=== PATIENT | female | born 1990 | race Caucasian/White ===

== ENCOUNTER → 2024-06-05 | Outpatient (CLI) | payer OTHER ==
[~2024-06-05] MED LIST: NITR100CA PO; SULTRIDS PO
[2024-06-13 13:57] LABS: HPV HIGH RISK BY TMA Not Detected; HPV SOURCE Cervical/Vag
== END ==
LOC: LAB 16:17 → LAB SHORT 16:17
PROVIDERS: Obstetrics & Gynecology
DX: Z01.419 Encounter for gynecological examination (general) (routine) without abnormal findings (principal)
CPT/HCPCS: 87624; G0123